=== PATIENT | male | born 1955 | race Caucasian/White ===

== ENCOUNTER 2019-07-24 00:50 | Inpatient (IN) | payer OTHER ==
[~2019-07-24] VITALS: Ht 167.6 cm; Wt 73.7 kg
[2019-07-24 00:55] VITALS: BP_SYST 124
[2019-07-24 02:07] LABS: CALCIUM 9.4 mg/dL (8.4-11.0); CREATININE 1.24 mg/dL (0.55-1.30); POTASSIUM 4.1 mmol/L (3.5-5.1)
[2019-07-24 02:13] LABS: ALBUMIN 4.8 g/dL (3.4-4.8); TOTAL BILIRUBIN 0.8 mg/dL (0.0-1.0)
[2019-07-24 02:19] LABS: HEMOGLOBIN 14.6 g/dL (14.0-18.0); MEAN CORPUSCULAR HEMOGLOBIN 38 pg (27-31); RED BLOOD CELL COUNT(AUTO) 3.86 MIL/uL (4.2-6.2); WHITE BLOOD COUNT (AUTO) 11.4 K/uL (4.8-10.8)
[2019-07-24 02:27] LABS: BASOPHILS # (AUTO) 0.1 K/uL (0.0-0.2); BASOPHILS % (AUTO) 0.5 % (0.0-2.0); HEMATOCRIT 41.7 % (36-54); LYMPHOCYTES # (AUTO) 0.2 K/uL (1.0-5.5); LYMPHOCYTES % (AUTO) 2.2 % (20.5-51.5); MEAN CORPUSCULAR HGB CONC 35 % (32-36); MEAN CORPUSCULAR VOLUME 108 fL (79.0-98.0); MONOCYTES # (AUTO) 0.3 K/uL (0.0-1.0); MONOCYTES % (AUTO) 2.7 % (1.7-9.3); NEUTROPHILS # (AUTO) 10.7 K/uL (1.8-7.7); NEUTROPHILS % (AUTO) 94.6 % (40.0-70.0); PLATELET COUNT (AUTO) 211 K/uL (130-430); RED CELL DISTRIBUTION WIDTH 12.9 % (9.0-15.0)
[2019-07-24] MEDS ORDERED: MAG HYDROX/AL HYDROX/SIMETH 30 ML, DICYCLOMINE HCL 20 MG, LIDOCAINE VISCOUS 2% 15ML (PO... PO ONE ×3 (04:30)
[2019-07-24] MEDS ORDERED: NACL 0.9% 1,000 ML IV ONE (04:57)
[2019-07-24] MEDS ORDERED: ONDANSETRON HCL 4 MG/2 ML VIAL IVP ONE (05:00)
[2019-07-24 05:32] LABS: PROTHROMBIN TIME 9.7 SECS (9.5-12.5)
[2019-07-24 05:34] LABS: AMYLASE 76 U/L (0-100); LIPASE 426 U/L (73-393)
[2019-07-24 06:50] LABS: BILIRUBIN,URINE NEGATIVE (NEGATIVE); CLARITY/URINE CLEAR (CLEAR); COLOR,URINE YELLOW (YELLOW); GLUCOSE,URINE TRACE (NEGATIVE); KETONES,URINE NEGATIVE (NEGATIVE); LEUKOCYTE ESTERASE ,URINE NEGATIVE (NEGATIVE); NITRITE, URINE NEGATIVE (NEGATIVE); PROTEIN URINE TRACE (NEGATIVE); UROBILINOGEN,URINE 0.2 (0.2-1.0)
[2019-07-24 07:17] LABS: BLOOD, URINE TRACE (NEGATIVE)
[2019-07-24 07:35] LABS: BACTERIA,URINE FEW /HPF (None Seen); HYALINE CASTS, URINE 0-10 /LPF (None Seen); MUCUS,URINE 1+ /LPF (None Seen)
[2019-07-24 08:00] VITALS: BP_SYST 155
[2019-07-24 08:14] VITALS: BP_SYST 152
[2019-07-24] MEDS: PANTOPRAZOLE SODIUM 40 MG/VIAL (PROTONIX) IVP SCH (08:28)
[2019-07-24] MEDS ORDERED: PANTOPRAZOLE SODIUM 40 MG/VIAL (PROTONIX) IVP ONE (08:30)
[2019-07-24] MEDS ORDERED: MORPHINE 2 MG/ML INJ. SYRINGE IVP PRN (08:30)
[2019-07-24] MEDS: MORPHINE 4 MG/ML INJ. SYRINGE IVP PRN (08:51)
[2019-07-24] MEDS: D5/0.45 NS 1,000 ML IV SCH (09:08)
[2019-07-24] MEDS: LORazepam 2 MG/ML VIAL IVP PRN (10:56)
[2019-07-24 12:00] VITALS: BP_SYST 139
[2019-07-24] MEDS ORDERED: SIMETHICONE 40 MG/0.6 ML ML ONE (13:24)
[2019-07-24] MEDS ORDERED: BENZOCAINE 20% 0.5mL UD SPRAY MM ONE (13:24)
[2019-07-24] MEDS: MIDAZOLAM HCL 5 MG/5 ML VIAL ONE ×4 (14:07→14:22)
[2019-07-24] MEDS ORDERED: DIPHENHYDRAMINE INJ 50 MG/ML VIAL ONE (14:07)
[2019-07-24] MEDS: fentaNYL CITRATE/PF 100 MCG/2 ML AMP ONE ×2 (14:07→14:10)
[2019-07-24] MEDS ORDERED: HYDROcodone/ACETAMIN 10-325 MG TAB PO PRN (19:30)
[2019-07-24] MEDS ORDERED: LORazepam 2 MG/ML VIAL IVP PRN (19:30)
[2019-07-24] MEDS ORDERED: ACETAMINOPHEN 325 MG TABLET PO PRN (19:30)
[2019-07-24] MEDS ORDERED: ONDANSETRON HCL 4 MG/2 ML VIAL IVP PRN (19:30)
[2019-07-24] MEDS ORDERED: HYDROcodone/ACETAMIN 5-325 MG TAB (NORCO/ VICODIN) PO PRN (19:30)
[2019-07-24 20:00] VITALS: BP_SYST 148
[2019-07-24 23:31] VITALS: BP_SYST 148
[2019-07-25] VITALS (14 sets, daily range): BP systolic 106–138
[2019-07-25] MEDS: LORazepam 2 MG/ML VIAL IVP PRN ×5 (01:54→23:13)
[2019-07-25] MEDS: D5/0.45 NS 1,000 ML IV SCH (01:57)
[2019-07-25 07:02] LABS: BASOPHILS % (AUTO) 0.1 % (0.0-2.0); HEMATOCRIT 38.7 % (36-54); HEMOGLOBIN 13.8 g/dL (14.0-18.0); LYMPHOCYTES # (AUTO) 0.2 K/uL (1.0-5.5); LYMPHOCYTES % (AUTO) 2.4 % (20.5-51.5); MEAN CORPUSCULAR HEMOGLOBIN 39 pg (27-31); MEAN CORPUSCULAR HGB CONC 36 % (32-36); MEAN CORPUSCULAR VOLUME 108 fL (79.0-98.0); MONOCYTES # (AUTO) 0.5 K/uL (0.0-1.0); MONOCYTES % (AUTO) 5.9 % (1.7-9.3); NEUTROPHILS # (AUTO) 7.8 K/uL (1.8-7.7); NEUTROPHILS % (AUTO) 91.6 % (40.0-70.0); PLATELET COUNT (AUTO) 158 K/uL (130-430); RED BLOOD CELL COUNT(AUTO) 3.58 MIL/uL (4.2-6.2); WHITE BLOOD COUNT (AUTO) 8.5 K/uL (4.8-10.8)
[2019-07-25 07:24] LABS: CALCIUM 8.7 mg/dL (8.4-11.0); CREATININE 1.03 mg/dL (0.55-1.30); POTASSIUM 3.2 mmol/L (3.5-5.1)
[2019-07-25] MEDS: PANTOPRAZOLE SODIUM 40 MG/VIAL (PROTONIX) IVP SCH (09:54)
[2019-07-25] MEDS: MORPHINE 4 MG/ML INJ. SYRINGE IVP PRN ×2 (09:55→16:34)
[2019-07-25] MEDS ORDERED: chlordiazePOXIDE HCL 25 MG CAPSULE PO ONE (11:15)
[2019-07-25] MEDS ORDERED: FOLIC ACID 1 MG, THIAMINE HCL 100 MG, MAGNESIUM SULFATE 1 GM, MVI 10 ML in NACL 0.9% 1,... IV SCH (13:00)
[2019-07-25] MEDS: chlordiazePOXIDE HCL 25 MG CAPSULE PO SCH ×2 (15:00→21:00)
[2019-07-25] MEDS: FOLIC ACID 1 MG, MVI 10 ML in NACL 0.9% 1,000 ML IV SCH (15:42)
[2019-07-25] MEDS: THIAMINE HCL 100 MG, MAGNESIUM SULFATE 1 GM in NS 100 ML IV SCH (15:44)
[2019-07-25 18:09] LABS: BARBITURATE, URINE NEGATIVE (NEG <=200); BENZODIAZEPINE, URINE POSITIVE (NEG <=150); METHAMPHETAMINES SCREEN,URINE NEGATIVE (NEG <=500); URINE AMPHETAMINE NEGATIVE (NEG <=500)
[2019-07-25 18:10] LABS: CANNABINOID, URINE NEGATIVE (NEG <=50); COCAINE, URINE NEGATIVE (NEG <=150); OPIATE, URINE POSITIVE (NEG <=100); PHENCYCLIDINE SCREEN,URINE NEGATIVE (NEG <=25); UR TRICYCLIC ANTIDEPRESSANTS NEGATIVE (NEG <=300); URINE METHADONE NEGATIVE (NEG <=200); URINE OXYCODONE SCREEN NEGATIVE (NEG <=100); URINE PROPOXYPHENE SCREEN NEGATIVE (NEG <=300)
[2019-07-26] VITALS (14 sets, daily range): BP systolic 121–144
[2019-07-26] MEDS: D5/0.45 NS 1,000 ML IV SCH ×3 (00:12→20:11)
[2019-07-26 06:00] LABS: BASOPHILS % (AUTO) 0.2 % (0.0-2.0); EOSINOPHILS % (AUTO) 0.2 % (0.0-4.0); HEMATOCRIT 39.9 % (36-54); LYMPHOCYTES # (AUTO) 0.5 K/uL (1.0-5.5); LYMPHOCYTES % (AUTO) 7.7 % (20.5-51.5); MEAN CORPUSCULAR HEMOGLOBIN 38 pg (27-31); MEAN CORPUSCULAR HGB CONC 35 % (32-36); MEAN CORPUSCULAR VOLUME 109 fL (79.0-98.0); MONOCYTES # (AUTO) 0.5 K/uL (0.0-1.0); NEUTROPHILS # (AUTO) 5.7 K/uL (1.8-7.7); NEUTROPHILS % (AUTO) 84.9 % (40.0-70.0); PLATELET COUNT (AUTO) 146 K/uL (130-430); RED BLOOD CELL COUNT(AUTO) 3.65 MIL/uL (4.2-6.2); RED CELL DISTRIBUTION WIDTH 13.1 % (9.0-15.0); WHITE BLOOD COUNT (AUTO) 6.8 K/uL (4.8-10.8)
[2019-07-26 06:20] LABS: ALBUMIN 3.6 g/dL (3.4-4.8); CALCIUM 8.5 mg/dL (8.4-11.0); CREATININE 0.74 mg/dL (0.55-1.30); POTASSIUM 3.1 mmol/L (3.5-5.1); TOTAL BILIRUBIN 1.1 mg/dL (0.0-1.0)
[2019-07-26] MEDS ORDERED: COMMUNICATION ORDER XX SCH (06:45)
[2019-07-26] MEDS: KCL 20 mEq in 100 mL (PREMIX) 100 ML IV SCH ×2 (08:06→09:58)
[2019-07-26] MEDS ORDERED: MULTIVITS,CA,MINERALS/IRON/FA 1 TABLET PO SCH (09:00)
[2019-07-26] MEDS ORDERED: FOLIC ACID 1 MG TABLET PO SCH (09:00)
[2019-07-26] MEDS ORDERED: THIAMINE HCL 100 MG TABLET PO SCH (09:00)
[2019-07-26] MEDS: chlordiazePOXIDE HCL 25 MG CAPSULE PO SCH ×3 (09:57→20:05)
[2019-07-26] MEDS: PANTOPRAZOLE SODIUM 40 MG/VIAL (PROTONIX) IVP SCH (09:57)
[2019-07-26] MEDS ORDERED: LORazepam 2 MG/ML VIAL IVP PRN (10:15)
[2019-07-26] MEDS: THIAMINE HCL 100 MG, MAGNESIUM SULFATE 1 GM in NS 100 ML IV SCH (13:17)
[2019-07-26] MEDS ORDERED: DIPHENHYDRAMINE INJ 50 MG/ML VIAL IVP PRN (18:45)
[2019-07-26] MEDS: HALOPERIDOL LACTATE 5 MG/ML VIAL IVP PRN ×2 (18:59→23:20)
[2019-07-26] MEDS ORDERED: HALOPERIDOL LACTATE 5 MG/ML VIAL ONE (19:07)
[2019-07-26] MEDS: FOLIC ACID 1 MG, MVI 10 ML in NACL 0.9% 1,000 ML IV SCH (20:06)
[2019-07-27] VITALS (7 sets, daily range): BP systolic 78–150
[2019-07-27] MEDS: HALOPERIDOL LACTATE 5 MG/ML VIAL IVP PRN ×2 (04:00→08:55)
[2019-07-27] MEDS: D5/0.45 NS 1,000 ML IV SCH (05:15)
[2019-07-27 07:27] LABS: BASOPHILS % (AUTO) 0.3 % (0.0-2.0); EOSINOPHILS % (AUTO) 0.4 % (0.0-4.0); HEMOGLOBIN 14.2 g/dL (14.0-18.0); LYMPHOCYTES # (AUTO) 0.4 K/uL (1.0-5.5); LYMPHOCYTES % (AUTO) 10.3 % (20.5-51.5); MEAN CORPUSCULAR HEMOGLOBIN 38 pg (27-31); MEAN CORPUSCULAR HGB CONC 35 % (32-36); MEAN CORPUSCULAR VOLUME 109 fL (79.0-98.0); MONOCYTES # (AUTO) 0.5 K/uL (0.0-1.0); NEUTROPHILS # (AUTO) 2.9 K/uL (1.8-7.7); PLATELET COUNT (AUTO) 161 K/uL (130-430); RED BLOOD CELL COUNT(AUTO) 3.76 MIL/uL (4.2-6.2); WHITE BLOOD COUNT (AUTO) 3.9 K/uL (4.8-10.8)
[2019-07-27 07:54] LABS: RED CELL DISTRIBUTION WIDTH 12.9 % (9.0-15.0)
[2019-07-27 07:55] LABS: ALBUMIN 3.3 g/dL (3.4-4.8); CALCIUM 8.6 mg/dL (8.4-11.0); CREATININE 0.76 mg/dL (0.55-1.30); POTASSIUM 3.1 mmol/L (3.5-5.1); TOTAL BILIRUBIN 1.1 mg/dL (0.0-1.0)
[2019-07-27] MEDS: chlordiazePOXIDE HCL 25 MG CAPSULE PO SCH (08:54)
[2019-07-27] MEDS: PANTOPRAZOLE SODIUM 40 MG/VIAL (PROTONIX) IVP SCH (08:54)
[2019-07-27] MEDS ORDERED: NOREPINEPHRINE BITARTRATE 4 MG in NS 246 ML IV PRN ×2 (13:45→14:00)
[2019-07-27] MEDS: FOLIC ACID 1 MG, MVI 10 ML in NACL 0.9% 1,000 ML IV SCH (13:51)
[2019-07-27] MEDS: THIAMINE HCL 100 MG, MAGNESIUM SULFATE 1 GM in NS 100 ML IV SCH (13:51)
[2019-07-27] MEDS ORDERED: COMMUNICATION ORDER XX ONE (15:15)
[2019-07-27] MEDS ORDERED: ACETAMINOPHEN 650 MG/20.3 ML UDC NG PRN (15:24)
[2019-07-27] MEDS ORDERED: chlordiazePOXIDE HCL 25 MG CAPSULE NG SCH (15:25)
[2019-07-27] MEDS ORDERED: MULTIVITS,CA,MINERALS/IRON/FA 1 TABLET NG SCH (15:25)
[2019-07-27] MEDS ORDERED: FOLIC ACID 1 MG TABLET NG SCH (15:25)
[2019-07-27] MEDS ORDERED: HYDROcodone/ACETAMIN 5-325 MG TAB (NORCO/ VICODIN) NG PRN (15:25)
[2019-07-27] MEDS ORDERED: HYDROcodone/ACETAMIN 10-325 MG TAB NG PRN (15:25)
[2019-07-27] MEDS ORDERED: THIAMINE HCL 100 MG TABLET NG SCH (15:26)
[2019-07-27] MEDS ORDERED: chlordiazePOXIDE HCL 25 MG CAPSULE NG ONE (16:30)
[2019-07-27] MEDS ORDERED: EPINEPHrine JECT 0.1 MG/ML SYR IVP ONE (19:58)
== END 2019-07-27 17:15 | disposition expired | DRG 208 ==
LOC: SED 00:50 → SMU 07:05 → SIC 07-25 14:06 → STU 07-26 12:05 → SIC 07-27 12:20
PROVIDERS: ADMIT Preventive Medicine Preventive Medicine/Occupational Environmental Medicine; ATTEND Preventive Medicine Preventive Medicine/Occupational Environmental Medicine
PROC: 0D9670Z Drainage of Stomach with Drainage Device, Via Natural or Artificial Opening (ICD-10-PCS; principal; 2019-07-24 15:00)
PROC: 5A12012 Performance of Cardiac Output, Single, Manual (ICD-10-PCS; 2019-07-27)
PROC: 5A1935Z Respiratory Ventilation, Less than 24 Consecutive Hours (ICD-10-PCS; 2019-07-27)
DX: J18.9 Pneumonia, unspecified organism (principal); K56.2 Volvulus; K31.1 Adult hypertrophic pyloric stenosis; K44.0 Diaphragmatic hernia with obstruction, without gangrene; F10.231 Alcohol dependence with withdrawal delirium; K76.9 Liver disease, unspecified; E87.6 Hypokalemia; I10 Essential (primary) hypertension; I46.9 Cardiac arrest, cause unspecified; K29.70 Gastritis, unspecified, without bleeding; R73.9 Hyperglycemia, unspecified; Z79.899 Other long term (current) drug therapy
CPT/HCPCS: 36415; 36600; 43239; 71045; 80048; 80053; 80307; 81000-TC; 82105; 82150-TC; 82803-TC; 82962; 83690-TC; 85025; 85610-TC; 87081; 87086; 88305; 88312; 88313; 92950; 93005; 96361; 96374; 99285; C9113; G0378; G0482; J0171; J1200; J1630; J2001; J2060; J2250; J2270; J2405; J3010; J3411; J3475; J3480; J3490; J7030; J7050